=== PATIENT | female | born 1950 ===

== ENCOUNTER 2018-11-04 07:34 | Outpatient (CLI) | payer MEDICARE, OTHER | END 2018-11-04 07:35 | disposition home or self-care (01) | LOC: RAD 07:34 ==

== ENCOUNTER 2018-12-21 06:42 | Outpatient (CLI) | payer MEDICARE | END 2018-12-21 06:43 | disposition home or self-care (01) | LOC: RAD 06:42 | DX: Z12.31 Encounter for screening mammogram for malignant neoplasm of breast (principal) ==

== ENCOUNTER 2019-01-09 08:53 | Outpatient (CLI) | payer MEDICARE | END 2019-01-09 08:54 | disposition home or self-care (01) | LOC: RAD 08:53 ==